=== PATIENT | male | born 1975 | race Caucasian/White ===

== ENCOUNTER → 2023-05-22 14:29 | Outpatient (CLI) | payer OTHER, SELFPAY ==
--- NOTE | ~2023-05-22 | MR_ITS ---
EXAMINATION: MR shoulder RT wo con DATE: 05/22/2023 15:06 INDICATION: Right shoulder pain TECHNIQUE: Magnetic resonance imaging (MRI) of the right shoulder was performed without intravenous c ontrast. Sequences included axial PD-weighted FS FSE, coronal oblique PD-weighted FS FSE, coronal obl ique T2-weighted FS FSE, sagittal PD-weighted FS FSE, and sagittal T1-weighted SE. COMPARISON: None. FINDINGS: Coracoacromial arch: The acromion undersurface is minimally curved in morphology (type I-II). The coracoacromial ligament is normal. Acromioclavicular joint is normal. Rotator cuff: Mild tendinopathy without discrete tear at the conjoined portion of the supraspinatus and infraspinat us tendons. Remainder of the supraspinatus and infraspinatus tendons as well as the teres minor and s ubscapularis tendons are all normal. Normal rotator cuff muscle bulk and signal. Biceps tendon, glenoid labrum and glenohumeral cartilage: Long head of the biceps tendon is normal. Is a small region of partial-thickness chondral ulceration at the posterior inferior glenoid. There is amorphous increased signal in the inferior glenoid labrum consistent with labral degeneration extending from the 7:00 position posteriorly to the 4:30 positio n anteriorly. Fluid: Physiologic amount of fluid in the glenohumeral joint and biceps tendon sheath. No loose osteochondr al bodies. Small amount of fluid in the subacromial/subdeltoid bursa consistent with mild bursitis. Bones: Normal marrow signal with no edema, fracture or abnormal marrow replacing process. IMPRESSION: 1. Mild glenohumeral osteoarthritis with small region of moderate grade chondromalacia along the post erior inferior glenoid and adjacent inferior labral degeneration. 2. Mild tendinopathy without tear at the conjoined portion of the supraspinatus and infraspinatus juan diego stuart. Reviewed, dictated and finalized at location A. PATIONAL ANALYST IMPRESSION: 1. Mild glenohumeral osteoarthritis with small region of moderate grade chondro malacia along the posterior inferior glenoid and adjacent inferior labral degen eration. 2. Mild tendinopathy without tear at the conjoined portion of the supraspinatus and infraspinatus tendons.
== END ==
DX: M19.011 Primary osteoarthritis, right shoulder (principal)
CPT/HCPCS: 73221